=== PATIENT | male | born 1975 | race American Indian/Alaskan Native ===

== ENCOUNTER 2017-02-18 05:40 | Emergency (ER) | payer MEDICAID ==
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
[2017-02-18] MEDS ORDERED: Diphtheria,Pertussis(Acell),Tetanus Vaccine 0.5 ML SDV IM ONE (06:31)
[2017-02-18 06:43] VITALS: BP 178/115
[2017-02-18] MEDS ORDERED: Sodium Chloride 0.9% 10 ML Syringe FLUSH PRN (07:06)
[2017-02-18] MEDS ORDERED: Sodium Chloride 0.9% 1,000 ML IV SCH (08:00)
[2017-02-18] MEDS ORDERED: Midazolam 1 MG/ML 2 ML SDV IVPUSH ONE (09:35)
[2017-02-18] MEDS ORDERED: Lidocaine 1% 20 ML MDV INJECT ONE (09:36)
== END 2017-02-18 12:07 | disposition home or self-care (01) ==
LOC: JP.ED 05:40
DX: S01.81XA Laceration without foreign body of other part of head, initial encounter (principal); F19.10 Other psychoactive substance abuse, uncomplicated; Z23 Encounter for immunization; X58.XXXA Exposure to other specified factors, initial encounter
CPT/HCPCS: 12013; 36415; 51702; 70450; 70486; 80053; 80305; 81001; 82550; 85025; 90471; 90715; 96360; 96361; 99284; G0480; J7040; J7050